=== PATIENT | male | born 1965 | race Caucasian/White ===

== ENCOUNTER 2017-11-02 03:18 | Emergency (ER) | payer MEDICARE ==
[~2017-11-02] VITALS: Ht 160 cm; Wt 70.0 kg
[2017-11-02 03:22] VITALS: BP 154/95; PULSE 87; RESP 18; TEMP 98.4; O2SAT 96
[2017-11-02] MEDS ORDERED: SULFAMETHOXAZOLE-TRIMETHOPRIM DS 800-160 MG TAB PO ONE (04:30)
[2017-11-02] MEDS ORDERED: VANCOMYCIN INJ 1,000 MG in SODIUM CHLOR 0.9% 250 ML INJ 250 ML IV ONE (05:15)
[2017-11-02 05:43] LABS: AUTOMATED NEUTROPHIL # 3.3 TH/MM3 (1.8-7.7); BASOPHIL % 0.8 % (0.0-2.0); EOSINOPHIL # 0.2 TH/MM3 (0-0.4); EOSINOPHIL % 3.6 % (0.0-4.0); HEMOGLOBIN 16.6 GM/DL (13.0-17.0); LYMPH % 23.9 % (9.0-44.0); LYMPHOCYTE # 1.2 TH/MM3 (1.0-4.8); MEAN CELL VOLUME 91.5 FL (80.0-100.0); MEAN CORPUSCULAR HEMOGLOBIN 31.7 PG (27.0-34.0); MEAN CORPUSCULAR HGB CONC 34.7 % (32.0-36.0); MEAN PLATELET VOLUME 8.4 FL (7.0-11.0); MONO % 8.2 % (0.0-8.0); MONOCYTE # 0.4 TH/MM3 (0-0.9); NEUT % 63.5 % (16.0-70.0); PLATELET COUNT 222 TH/MM3 (150-450); RED BLOOD COUNT 5.24 MIL/MM3 (4.50-5.90); WHITE BLOOD COUNT 5.2 TH/MM3 (4.0-11.0)
[2017-11-02 06:05] LABS: ALBUMIN 4.1 GM/DL (3.4-5.0); ALT (GPT) 48 U/L (12-78); AST (GOT) 33 U/L (15-37); BICARBONATE 21.5 MEQ/L (21.0-32.0); BLOOD UREA NITROGEN 10 MG/DL (7-18); CALCIUM 9.1 MG/DL (8.5-10.1); CHLORIDE 107 MEQ/L (98-107); CREATININE 0.91 MG/DL (0.60-1.30); GLOMERULAR FILTRATION RATE 87 ML/MIN (>89); GLUCOSE,RANDOM 90 MG/DL (74-106); SODIUM (NA) 139 MEQ/L (136-145)
[2017-11-02 06:08] LABS: ALKALINE PHOSPHATASE 142 U/L (45-117); TOTAL BILIRUBIN ADULT 0.3 MG/DL (0.2-1.0); TOTAL PROTEIN 7.8 GM/DL (6.4-8.2)
[2017-11-02 06:11] VITALS: BP 109/64; PULSE 57; RESP 18; O2SAT 97
--- NOTE | 2017-11-02 06:25 | PD ---
HPI Chief Complaint: Injury Time Seen by Provider: 03:57 Travel History International Travel<30 days: No Contact w/Intl Traveler<30days: No Traveled to known affect area: No History of Present Illness HPI Patient has a right heel breakdown macerated skin early infection with surrounding cellulitis. Patient says he just moved here from [place] is come to buy a house but right now he is temporally homeless. He is not taking any antibiotics he says he is osteogenic imperfecta a bone disease that has led him to having poor healing of prior ulcers that he has had cellulitis is also needed admissions for IV antibiotics patient is coming in complaining of cellulitis surrounding a heel ulcer not getting better he is not on antibiotics he took 6 pills October 12 but that was left over from a friend he has no antibiotics at this time PFSH Past Medical History Tetanus Vaccination: < 5 Years Influenza Vaccination: No Social History Alcohol Use: Yes Tobacco Use: No Substance Use: No Allergies-Medications (Allergen,Severity, Reaction): Coded Allergies: codeine (Verified Allergy, Unknown, 11/02/17) Reported Meds & Prescriptions Reported Meds & Active Scripts Active No Active Prescriptions or Reported Medications Data Data Last Documented VS Vital Signs Date Time Temp Pulse Resp B/P (MAP) Pulse Ox O2 Delivery O2 Flow Rate FiO2 11/02/17 06:11 57 18 109/64 (79) 97 Room Air 11/02/17 03:22 98.4 Orders Orders Sulfamet-Trimeth Ds 800-160 Mg (Bactrim (11/02/17 04:30) Complete Blood Count With Diff (11/02/17 05:02) Comprehensive Metabolic Panel (11/02/17 05:02) Blood Culture (11/02/17 05:02) Lactic Acid (11/02/17 05:02) Vancomycin Inj (Vancomycin Inj) (11/02/17 05:15) Labs Laboratory Tests Test 11/02/17 05:15 11/02/17 05:25 Lactic Acid Level 1.3 mmol/L White Blood Count 5.2 TH/MM3 Red Blood Count 5.24 MIL/MM3 Hemoglobin 16.6 GM/DL Hematocrit 48.0 % Mean Corpuscular Volume 91.5 FL Mean Corpuscular Hemoglobin 31.7 PG Mean Corpuscular Hemoglobin Concent 34.7 % Red Cell Distribution Width 13.0 % Platelet Count 222 TH/MM3 Mean Platelet Volume 8.4 FL Neutrophils (%) (Auto) 63.5 % Lymphocytes (%) (Auto) 23.9 % Monocytes (%) (Auto) 8.2 % Eosinophils (%) (Auto) 3.6 % Basophils (%) (Auto) 0.8 % Neutrophils # (Auto) 3.3 TH/MM3 Lymphocytes # (Auto) 1.2 TH/MM3 Monocytes # (Auto) 0.4 TH/MM3 Eosinophils # (Auto) 0.2 TH/MM3 Basophils # (Auto) 0.0 TH/MM3 CBC Comment DIFF FINAL Differential Comment Blood Urea Nitrogen 10 MG/DL Creatinine 0.91 MG/DL Random Glucose 90 MG/DL Total Protein 7.8 GM/DL Albumin 4.1 GM/DL Calcium Level 9.1 MG/DL Alkaline Phosphatase 142 U/L Aspartate Amino Transf (AST/SGOT) 33 U/L Alanine Aminotransferase (ALT/SGPT) 48 U/L Total Bilirubin 0.3 MG/DL Sodium Level 139 MEQ/L Potassium Level 4.4 MEQ/L Chloride Level 107 MEQ/L Carbon Dioxide Level 21.5 MEQ/L Anion Gap 11 MEQ/L Estimat Glomerular Filtration Rate 87 ML/MIN MDM Medical Decision Making Medical Screen Exam Complete: Yes Emergency Medical Condition: Yes Medical Record Reviewed: Yes Diagnosis Primary Impression: Foot ulcer Qualified Codes: L97.519 - Non-pressure chronic ulcer of other part of right foot with unspecified severity Patient Instructions: Diabetic Foot Ulcers (ED), General Instructions Scripts Sulfamethoxazole-Trimethoprim (Bactrim DS) 800-160 Mg Tab 1 TAB PO BID for Infection, #20 TAB 0 Refills Prov: William Cooper MD 11/02/17 Clindamycin (Clindamycin) 300 Mg Cap 300 MG PO TID for Infection, #30 CAP 0 Refills Prov: William Cooper MD 11/02/17 Disposition: 01 DISCHARGE HOME Condition: Good William Cooper MD Nov 02, 2017 06:25
[2017-11-02] MEDS ORDERED: BACT800T5 PO (06:44)
[2017-11-02] MEDS ORDERED: CLIN300C5 PO (06:44)
== END 2017-11-02 06:57 | disposition home or self-care (01) ==
LOC: NEPE 03:18
DX: L97.519 Non-pressure chronic ulcer of other part of right foot with unspecified severity (principal)
CPT/HCPCS: 80053; 83605; 85025; 87040; 96374; 99284; J3370; J7050